=== PATIENT | male | born 1935 | race Caucasian/White ===

== ENCOUNTER → 2020-08-22 | Outpatient (CLI) | payer OTHER ==
[~2020-08-22] MED LIST: ACIDOPHILUS1 EAC3 PO; BIOFREEZE118 ML TOP; CEFTRIAXONE2 G1 IVPB; CHILDREN'S ASPI81 M1 PO; COL-RITE100 MG PO; GLIPIZIDE5 GM PO; METOPROLOL SUCC50 MG PO; MILK OF MA2400 MG/11 PO; ROXICODONE5 M2 PO; SENOKOT8.6 MG PO; TYLENOL EXTRA500 MG PO
[2020-08-22 12:15] VITALS: BP 153/79
--- NOTE | 2020-08-22 12:31 | NUR ---
HERE FOR REPLACEMENT OF PICC LINE. PROCEDURE DONE AT BEDSIDE BY VASCULAR ACCESS TEAM NURSE, RAAD. PT TOLERATED WELL. SITE DRY, INTACT. PROTECTIVE SURGILAST TUBING PLACED COVER. GRANDSON WITH PT, HELPING WITH TRANSLATION. STATES HE WILL RESUME THE ANTIBITIOC THERAPY ONCE PT RETURNS HOME TODAY. NEXT VISIT FROM HOME HEALTH IS SET UP FOR TUESDAY PER GRANDSON. PT DISMISSED IN STABLE CONDITION.
--- NOTE | 2020-08-22 12:32 | NUR ---
VAT CONSULTED FOR PICC. PT'S GIACOMO BASILIC WAS WIDELY PATENT WITH USG, VESSEL MEASURED 25%. 4FR SL PICC TRIMMED TO 47CM INSERTED TO 3CM EXTERNAL X1 STICK. 3CG CONFIRMED PLACEMENT. PICC RELEASED FOR IMMEDIATE USE PER PROTOCOL. WALLET CARD GIVEN TO PT.
== END ==
LOC: OPONC 11:19
PROVIDERS: ATTEND Specialist
DX: T84.53XD Infection and inflammatory reaction due to internal right knee prosthesis, subsequent encounter (principal); Y83.8 Other surgical procedures as the cause of abnormal reaction of the patient, or of later complication, without mention of misadventure at the time of the procedure
CPT/HCPCS: 27000